=== PATIENT | male | born 1975 | race Caucasian/White ===

== ENCOUNTER → 2023-06-09 | Emergency (ER) | payer OTHER ==
[~2023-06-09] VITALS: Ht 175.3 cm; Wt 63.0 kg
[~2023-06-09] MED LIST: CLIN300C63 PO; DOXY-1 PO; NAPR-56 PO
[2023-06-09 13:53] VITALS: TEMP 98.7
[2023-06-09 14:44] VITALS: BP 147/90; PULSE 86; RESP 16; O2SAT 97
== END | disposition home or self-care (01) ==
LOC: ER 12:58
DX: K04.7 Periapical abscess without sinus (principal); Z79.899 Other long term (current) drug therapy
CPT/HCPCS: 99283